=== PATIENT | female | born 1955 | race Caucasian/White ===

== ENCOUNTER 2022-01-14 07:39 | Outpatient (CLI) | payer MEDICARE, OTHER ==
[2022-01-14 08:10] LABS: Albumin 4.3 g/dL (3.4-4.8); Anion Gap 14 mmol/L (10-20); Bilirubin, Total 0.3 mg/dL (0.2-1.2); Calcium 9.8 mg/dL (7.8-10.44); Carbon Dioxide 28 mmol/L (23-31); Chloride 105 mmol/L (98-107); Globulin 2.8 g/dL (2.4-3.5); Glucose 110 mg/dL (80-115); Potassium 4.9 mmol/L (3.5-5.1); Protein, Total 7.1 g/dL (5.8-8.1); Sodium 142 mmol/L (136-145); Triglycerides 118 mg/dL (Less than 150)
[2022-01-14 08:28] LABS: ALT (SGPT) 35 U/L (8-55); AST (SGOT) 21 U/L (5-34); Alkaline Phosphatase 113 U/L (40-110); BUN (Urea Nitrogen) 6 mg/dL (9.8-20.1); Calc. Creatinine Clearance 0 mL/min (70-130); Cardiac Risk 3.4 (Less than 4.5); Cholesterol 148 mg/dl (< 200 Desired); HDL Cholesterol 44 mg/dL (>60 Neg Risk)
[2022-01-14 08:51] LABS: LDL Cholesterol, Calculated 80 mg/dL
[2022-01-14 12:57] LABS: HBCM Index 0.08 S/CO (0-0.79); HBSAg Index 0.32 S/CO (0-0.99); Hep A IgM AB Non-Reactive (NonReactive); Hep A IgM S/CO 0.11 S/CO (0-0.79); Hep B Surf Ag Non-Reactive S/CO (NonReactive); Hep C IgG Ab Non-Reactive (NonReactive); Hep C Index 0.07 S/CO (0-0.79); Hepatitis B Core IgM Abs Non-Reactive (NonReactive)
== END 2022-01-14 07:40 | disposition home or self-care (01) ==
LOC: MADLAB 07:39
PROVIDERS: ATTEND Family Medicine
DX: E78.2 Mixed hyperlipidemia (principal); R74.8 Abnormal levels of other serum enzymes; R73.03 Prediabetes
CPT/HCPCS: 36415; 80053; 80061; 80074; 83036

== ENCOUNTER 2022-04-13 07:03 | Outpatient (CLI) | payer MEDICARE ==
[2022-04-13 07:49] LABS: ALT (SGPT) 31 U/L (8-55); AST (SGOT) 21 U/L (5-34); Albumin 4.3 g/dL (3.4-4.8); Alkaline Phosphatase 104 U/L (40-110); Anion Gap 15 mmol/L (10-20); BUN (Urea Nitrogen) 7 mg/dL (9.8-20.1); Bilirubin, Total 0.4 mg/dL (0.2-1.2); Calc. Creatinine Clearance 0 mL/min (70-130); Calcium 9.4 mg/dL (7.8-10.44); Carbon Dioxide 24 mmol/L (23-31); Chloride 108 mmol/L (98-107); Cholesterol 180 mg/dl (< 200 Desired); Globulin 2.8 g/dL (2.4-3.5); Glucose 104 mg/dL (80-115); HDL Cholesterol 45 mg/dL (>60 Neg Risk); LDL Cholesterol, Calculated 111 mg/dL; Potassium 4.2 mmol/L (3.5-5.1); Protein, Total 7.1 g/dL (5.8-8.1); Sodium 143 mmol/L (136-145); Triglycerides 122 mg/dL (Less than 150)
[2022-04-13 11:47] LABS: Hemoglobin A1c 5.9 % (4.0-6.0)
== END 2022-04-13 07:04 | disposition home or self-care (01) ==
LOC: MADLAB 07:03
PROVIDERS: ATTEND Family Medicine
DX: E78.2 Mixed hyperlipidemia (principal); R73.03 Prediabetes
CPT/HCPCS: 36415; 80053; 80061; 83036

== ENCOUNTER 2024-08-21 08:12 | Emergency (ER) | payer OTHER, MEDICAID ==
[2024-08-21] MEDS ORDERED: Nitroglycerin 0.4 MG TAB 1 EACH ONE (08:47)
[2024-08-21] MEDS ORDERED: Aspirin Chewable 81 MG TAB ONE (08:48)
[2024-08-21 08:53] LABS: #Basophils 0.1 thou/uL (0.0-0.2); #Eosinophils 0.1 thou/uL (0.0-0.7); #Lymphocytes 2.3 thou/uL (1.20-3.40); #Monocytes 0.6 thou/uL (0.11-0.59); #Neutrophils 7.4 thou/uL (1.40-6.50); %Lymphocytes 21.8 % (21.0-51.0); %Monocytes 5.8 % (0.0-10.0); %Neutrophils 70.4 % (42.0-75.0); Hematocrit 41.2 % (36.0-47.0); Hemoglobin 13.6 g/dL (12.0-16.0); Mean Corpuscular Hemoglobin 31.6 pg (27.0-31.0); Mean Corpuscular Volume 95.8 fl (78.0-98.0); Mean Platelet Volume 7.9 fL (7.4-10.4); Platelet Count 376 10x3/uL (130-400); RBC Distribution Width 11.6 % (11.5-14.5); White Blood Cell (WBC) Count 10.6 10x3/uL (4.8-10.8)
[2024-08-21] MEDS ORDERED: Iopamidol 370 76% 100 ML VIAL ONE (09:00)
[2024-08-21 09:04] LABS: ALT (SGPT) 25 U/L (8-55); AST (SGOT) 22 U/L (5-34); Albumin 4.8 g/dL (3.4-4.8); Alkaline Phosphatase 144 U/L (40-110); Anion Gap 16 mmol/L (10-20); BUN (Urea Nitrogen) 8 mg/dL (9.8-20.1); Bilirubin, Total 0.5 mg/dL (0.2-1.2); Calc. Creatinine Clearance 0 mL/min (70-130); Calcium 9.8 mg/dL (7.8-10.44); Carbon Dioxide 22 mmol/L (23-31); Chloride 102 mmol/L (98-107); Estimated GFR 94; Globulin 2.7 g/dL (2.4-3.5); Glucose 113 mg/dL (80-115); Potassium 4.1 mmol/L (3.5-5.1); Protein, Total 7.5 g/dL (5.8-8.1); Sodium 136 mmol/L (136-145)
[2024-08-21 09:06] LABS: Lipase Less than 4 U/L (8-78)
[2024-08-21 09:07] LABS: Troponin I Less than 0.010 ng/mL (< 0.028)
[2024-08-21] MEDS ORDERED: Morphine 4 MG/ML VIAL ONE (09:11)
[2024-08-21] MEDS ORDERED: Acetaminophen 500 MG TAB ONE (09:14)
[2024-08-21 12:06] LABS: Troponin I Less than 0.010 ng/mL (< 0.028)
== END 2024-08-21 11:53 | disposition short-term general hospital (02) ==
LOC: MADERS 08:12
DX: I44.7 Left bundle-branch block, unspecified (principal); J84.10 Pulmonary fibrosis, unspecified
CPT/HCPCS: 36415; 71045; 71275; 74174; 80053; 83690; 84484; 85025; 85379; 93005; 94760; J2272; Q9967